=== PATIENT | female | born 1975 | race Caucasian/White ===

== ENCOUNTER 2021-09-19 05:40 | Day surgery (SDC) | payer BC ==
[2021-09-12 16:27] LABS: CLARITY,URINE CLEAR (Clear); COLOR,URINE YELLOW (Yellow); GLUCOSE, URINE NEGATIVE (Neg); KETONES,URINE TRACE mg/dl (Neg); LEUKOCYTE ESTERASE ,URINE NEGATIVE (Neg); NITRITES, URINE NEGATIVE (Neg); OCCULT BLOOD,URINE NEGATIVE (Neg); PH,URINE 6.5 (4.8-8.0); PROTEIN,URINE NEGATIVE (Neg); URINE HCG NEGATIVE (NEG); UROBILINOGEN,URINE 0.2 E.U/dL (0.2-1.0)
[2021-09-12 16:31] LABS: BASOPHILS # (AUTO) 0.1 X10'3 (0-0.2); BASOPHILS % (AUTO) 0.8 % (0-1); EOSINOPHILS # (AUTO) 0.1 X10'3 (0-0.9); EOSINOPHILS % (AUTO) 1.9 % (0-6); LYMPHOCYTES # (AUTO) 2.1 X10'3 (1.1-4.8); LYMPHOCYTES % (AUTO) 29.5 % (21-51); MEAN CORPUSCULAR HEMOGLOBIN 19.7 PG (27.0-31.0); MEAN CORPUSCULAR HGB CONC 30.3 g/dL (33.0-36.5); MEAN CORPUSCULAR VOLUME 64.8 FL (78-98); MEAN PLATELET VOLUME 7.6 FL (7.4-10.4); MONOCYTES # (AUTO) 0.5 X10'3 (0-0.9); MONOCYTES % (AUTO) 7.2 % (2-12); NEUTROPHILS # (AUTO) 4.2 X10'3 (1.8-7.7); NEUTROPHILS % (AUTO) 60.6 % (42-75); PRE OP HEMATOCRIT 24.8 % (35.0-45.0); PRE OP PLATELET COUNT 487 X10'3 (140-440); RED BLOOD COUNT 3.83 X10'6 (4.20-5.60); RED CELL DISTRIBUTION WIDTH 20.3 % (11.5-14.5)
[2021-09-12 16:33] LABS: UA COLLECTION TYPE CLN CATCH MIDSTREAM
[2021-09-12 16:34] LABS: PRE OP HEMOGLOBIN 7.5 g/dL (12.0-16.0)
[2021-09-12 16:39] LABS: ALBUMIN 3.8 G/DL (3.4-5.0); ALBUMIN/GLOBULIN RATIO 1.2 (1.1-1.5); ALKALINE PHOSPHATASE 91 IU/L (46-116); BLOOD UREA NITROGEN 12 MG/DL (7-18); BUN/CREATININE RATIO 16.2 (6.6-38.0); CALCIUM 8.8 MG/DL (8.5-10.1); CHLORIDE 107 MMOL/L (99-107); CREATININE 0.74 MG/DL (0.40-0.90); PRE OP ALT 32 U/L (30-65); PRE OP ANION GAP 10 (8-16); PRE OP AST 14 U/L (10-37); PRE OP BILIRUB, TOTAL 0.4 MG/DL (0.0-1.0); PRE OP GLUCOSE 108 MG/DL (70-104); PRE OP POTASSIUM 3.9 MMOL/L (3.4-5.1); PRE OP SODIUM 141 MMOL/L (135-145); TOTAL CARBON DIOXIDE 24.5 MMOL/L (24-32); TOTAL PROTEIN 6.9 G/DL (6.4-8.2); eGFR 84 ML/MIN
[2021-09-12 19:29] LABS: ANISOCYTOSIS 3+; MICROCYTOSIS 2+; PLATELET ESTIMATE INCREASED
[2021-09-12 19:30] LABS: ELLIPTOCYTES FEW
[2021-09-12 19:31] LABS: LARGE PLATELETS FEW; POLYCHROMASIA 1+
[2021-09-19] VITALS (15 sets, daily range): BP systolic 118–136; BP diastolic 55–81
[~2021-09-19] VITALS: Ht 160 cm; Wt 90.5 kg
[~2021-09-19 05:40] MED LIST: DULO30CA52 PO; OMEP40CA21 PO; cefoxitin sod inj 2,000 MG in dextrose 5%-water 100 ML IV ONE; famotidine 20mg tablet PO ONE; ringers solution, lacted 1,000 ML IV SCH
[2021-09-19] MEDS ORDERED: neomy sulf/polymyxin B sulf. GU irrigation 1ml amp IR ONE (06:47)
[2021-09-19] MEDS ORDERED: BUPIVAcaine/PF 2.5 mg/ml (0.25%) 30ml vial ONE (06:47)
[2021-09-19] MEDS ORDERED: BUPIVAcaine 0.5% W/EPI /PF 30ml vial ONE (06:47)
[2021-09-19] MEDS ORDERED: vasoPRESSIN 20 units/ml inj. ONE (06:48)
[2021-09-19] MEDS ORDERED: rocuronium 10mg/ml inj IV ONE (07:21)
[2021-09-19] MEDS ORDERED: propofol inj 20 ML IV ONE (07:21)
[2021-09-19] MEDS ORDERED: fentaNYL /PF 50mcg/ml 5ml ampule ONE (07:21)
[2021-09-19] MEDS ORDERED: midazolam 1 mg/ML 2ml injection ONE (07:21)
[2021-09-19] MEDS ORDERED: dexamethasone sod phosphate 4mg/ml inj. ONE (07:25)
[2021-09-19] MEDS ORDERED: proCHLORperazine 10 MG/2 ml inj IV PRN (07:30)
[2021-09-19] MEDS ORDERED: morphine 2 MG/ML inj. syringe IV PRN (07:30)
[2021-09-19] MEDS ORDERED: ringers solution, lacted 1,000 ML IV SCH (07:30)
[2021-09-19] MEDS ORDERED: ondansetron/PF 4mg/2ml inj IV PRN ×2 (07:30→09:35)
[2021-09-19] MEDS ORDERED: meperidine/PF 25mg/ml syringe IV PRN ×3 (07:30)
[2021-09-19] MEDS ORDERED: morphine 4 MG/ML inj SYRINge IV PRN (07:30)
[2021-09-19] MEDS ORDERED: ondansetron/PF 4mg/2ml inj ONE (09:27)
[2021-09-19] MEDS ORDERED: sugammadex 200mg/2ml injection IV ONE (09:31)
[2021-09-19] MEDS ORDERED: normal saline 500ml IV soln 500 ML IV PRN (09:35)
[2021-09-19] MEDS ORDERED: ketorolac trometh. 30mg/ml inj. IV PRN (09:35)
[2021-09-19] MEDS ORDERED: magnesium hydroxide 30ml (MOM) UD suspension PO PRN (09:35)
[2021-09-19] MEDS ORDERED: LORazepam 2 mg/ml vial IV PRN (09:35)
[2021-09-19] MEDS ORDERED: HYDROcodone/acetaminophen 10/325mg tab PO PRN ×2 (09:35)
[2021-09-19] MEDS ORDERED: metoclopramide 5 mg/ml inj IV PRN (09:35)
[2021-09-19] MEDS ORDERED: diphenhydrAMINE 50 mg/ml inj IV PRN (09:35)
[2021-09-19] MEDS ORDERED: temazepam 15mg capsule PO PRN (09:35)
--- NOTE | 2021-09-19 09:46 | NUR ---
Received from OR via , accompanied by Anesthesiologist DR ZURITA and report given by Anesthesiolgist. AWAKENS TO VOICE. VITALS STABLE. DRESSING DI. JUAN PAIN. ABD SOFT. VALVERDE WITH CLEAR URINE.
--- NOTE | 2021-09-19 10:31 | NUR ---
Patient in room [facility] 347A. I have received report from YOCASTA EASON FROM [facility] and had the opportunity to ask questions and assume patient care.
--- NOTE | 2021-09-19 10:36 | NUR ---
Report called to receiving nurse. Transferred via BED Belongings . Special Issues communicated to receiving nurse. AWAKE AND ORIENTED. VITALS STABLE. DRESSINGS DI. JUAN PAIN. TO SURGICAL [facility] 347A AT THIS TIME.
[2021-09-19] MEDS: ringers solution, lacted 1,000 ML IV SCH ×2 (12:00→17:35)
--- NOTE | 2021-09-19 19:05 | NUR ---
Problems reprioritized. Patient report given, questions answered & plan of care reviewed with YOCASTA RUSSO.
--- NOTE | 2021-09-19 19:23 | NUR ---
Patient in room [facility] 347. I have received report from YOCASTA Jamison and had the opportunity to ask questions and assume patient care.
[2021-09-19] MEDS: docusate sod 100mg capsule PO SCH (20:07)
[2021-09-20] VITALS: BP 121/58
[2021-09-20] MEDS: ringers solution, lacted 1,000 ML IV SCH ×2 (01:35→09:35)
[2021-09-20 04:00] VITALS: BP 115/58
[2021-09-20 06:12] LABS: BASOPHILS % (AUTO) 0.2 % (0-1); EOSINOPHILS % (AUTO) 0.2 % (0-6); HEMATOCRIT 23.5 % (35.0-45.0); LYMPHOCYTES # (AUTO) 1.9 X10'3 (1.1-4.8); MEAN CORPUSCULAR HGB CONC 29.1 g/dL (33.0-36.5); MEAN CORPUSCULAR VOLUME 65.1 FL (78-98); MEAN PLATELET VOLUME 7.9 FL (7.4-10.4); MONOCYTES # (AUTO) 0.3 X10'3 (0-0.9); MONOCYTES % (AUTO) 4.1 % (2-12); NEUTROPHILS # (AUTO) 5.8 X10'3 (1.8-7.7); NEUTROPHILS % (AUTO) 71.5 % (42-75); PLATELET COUNT 459 X10'3 (140-440); RED BLOOD COUNT 3.61 X10'6 (4.20-5.60); RED CELL DISTRIBUTION WIDTH 20.1 % (11.5-14.5); WHITE BLOOD COUNT 8.1 X10'3 (4.5-11.0)
[2021-09-20 06:22] LABS: ALBUMIN 3.2 G/DL (3.4-5.0); ANION GAP 8 (8-16); BLOOD UREA NITROGEN 15 MG/DL (7-18); BUN/CREATININE RATIO 18.5 (6.6-38.0); CALCIUM 9.1 MG/DL (8.5-10.1); CHLORIDE 102 MMOL/L (99-107); CREATININE 0.81 MG/DL (0.40-0.90); GLUCOSE 101 MG/DL (70-104); POTASSIUM 3.4 MMOL/L (3.5-5.1); SODIUM 135 MMOL/L (135-145); TOTAL CARBON DIOXIDE 25.2 MMOL/L (24-32); eGFR 76 ML/MIN
[2021-09-20 06:24] LABS: HEMOGLOBIN 6.8 g/dl (12.0-16.0)
--- NOTE | 2021-09-20 06:30 | NUR ---
Patient in room . I have received report from Muna RUST and had the opportunity to ask questions and assume patient care.
--- NOTE | 2021-09-20 06:58 | NUR ---
Problems reprioritized. Patient report given, questions answered & plan of care reviewed with YOCASTA Jacome.
[2021-09-20 07:06] LABS: PLATELET ESTIMATE INCREASED
[2021-09-20 07:07] LABS: ANISOCYTOSIS 3+; HYPOCHROMASIA 2+; MICROCYTOSIS 2+; POLYCHROMASIA 2+
[2021-09-20 07:08] LABS: ELLIPTOCYTES 1+; TARGET CELLS 1+; TEAR DROP CELLS FEW
[2021-09-20 07:34] VITALS: BP 117/55
[2021-09-20] MEDS ORDERED: duloxetine 30mg CAPSULE.DR PO SCH (08:00)
[2021-09-20] MEDS ORDERED: pantoprazole 40mg Tablet.DR PO SCH (08:00)
[2021-09-20] MEDS ORDERED: enoxaparin 40mg/0.4ml syringe SQ SCH (08:00)
[2021-09-20] MEDS: docusate sod 100mg capsule PO SCH (08:41)
--- NOTE | 2021-09-20 11:17 | NUR ---
Patient discharged home in the care of her family. Patient expressed verbal understanding of discharge teaching at the time of discharge. Patient IV taken out at this time and site showed minimal bleeding and canula was whole and intact upon inspection. Patient left with all belongings at this time walked down to private vehicle at discharge.
== END 2021-09-20 11:17 | disposition home or self-care (01) ==
LOC: PAS 05:40 → SUR 3N 09:35 → PAS 09-20 11:17
PROVIDERS: ATTEND Obstetrics & Gynecology Obstetrics
DX: N92.0 Excessive and frequent menstruation with regular cycle (principal); N94.6 Dysmenorrhea, unspecified; D25.9 Leiomyoma of uterus, unspecified; N80.0 Endometriosis of uterus; D64.9 Anemia, unspecified; M19.90 Unspecified osteoarthritis, unspecified site; G43.909 Migraine, unspecified, not intractable, without status migrainosus; E66.9 Obesity, unspecified; Z68.36 Body mass index [BMI] 36.0-36.9, adult; Z79.899 Other long term (current) drug therapy; Z91.010 Allergy to peanuts; Z88.2 Allergy status to sulfonamides; F17.210 Nicotine dependence, cigarettes, uncomplicated; Z91.013 Allergy to seafood; Z91.09 Other allergy status, other than to drugs and biological substances; Z91.018 Allergy to other foods; Z91.012 Allergy to eggs; Z91.011 Allergy to milk products; Z82.62 Family history of osteoporosis; Z83.3 Family history of diabetes mellitus; Z82.61 Family history of arthritis
CPT/HCPCS: 36415; 58552; 71046; 80048; 80053; 81003; 81025; 82948; 85025; 86885; 86900; 86901; 87081; 93005; J0694; J1100; J1650; J1885; J2250; J2405; J2704; J3010; J3490; J7030; J7060; J7120; S0020; Z7506; Z7508; Z7512; 85008; A4314; A4618; A7000; G0378